=== PATIENT | male | born 1940 | race Hispanic/Latino ===

== ENCOUNTER 2017-03-02 12:31 | Emergency (ER) | payer MEDICARE ==
[2017-03-02] MEDS ORDERED: traMADol HCl 50 MG TAB ONE (13:15)
--- NOTE | 2017-03-02 15:36 | RAD ---
LEFT SHOULDER THREE VIEWS: Date: 03-02-17 FINDINGS: No fracture, dislocation, or AC joint widening was seen. Osteophytes are prominent in the AC joint an d some project inferiorly which could impinge upon the rotator cuff. Glenohumeral joint was unremarka ble. IMPRESSION: Degenerative change with no acute traumatic finding. POS: HOME
== END 2017-03-02 13:19 | disposition home or self-care (01) ==
LOC: BURERS 12:31
DX: M19.012 Primary osteoarthritis, left shoulder (principal)

== ENCOUNTER 2018-09-01 18:28 | Emergency (ER) | payer MEDICARE ==
[2018-09-01] MEDS ORDERED: Lidocaine 2% PF 5 ML VIAL ONE ×2 (18:40→18:42)
[2018-09-01] MEDS ORDERED: Cephalexin 500 MG CAP ONE (18:41)
[2018-09-01] MEDS ORDERED: Adacel (T-DAP) 0.5 ML SYRINGE ONE (18:41)
--- NOTE | 2018-09-01 21:59 | RAD ---
LEFT HAND THREE VIEWS: 09/01/18 Laceration is seen in the distal end of the third digit. While there is no major fracture, there is a very tiny alfonso of a density near the terminal tuft. This may be either a tiny avulsion or a small opaque foreign body. Elsewhere, degenerative changes are seen in the IP joints. IMPRESSION: Laceration with either tiny avulsion or tiny opaque foreign body at the distal end of the third digit . POS: HOME
== END 2018-09-01 19:18 | disposition home or self-care (01) ==
LOC: BURERS 18:28
DX: S61.313A Laceration without foreign body of left middle finger with damage to nail, initial encounter (principal); Z23 Encounter for immunization; W29.3XXA Contact with powered garden and outdoor hand tools and machinery, initial encounter; Y92.009 Unspecified place in unspecified non-institutional (private) residence as the place of occurrence of the external cause
CPT/HCPCS: 11760; 90471; 90715; J2001

== ENCOUNTER 2020-03-03 11:16 | Emergency (ER) | payer MEDICARE | END 2020-03-03 12:35 | disposition home or self-care (01) | LOC: BURERS 11:16 | DX: R53.81 Other malaise (principal); R09.81 Nasal congestion | CPT/HCPCS: 87804; 99283 ==

== ENCOUNTER 2020-03-05 05:31 | Emergency (ER) | payer MEDICARE ==
--- NOTE | 2020-03-05 07:23 | CT ---
CT ABDOMEN AND PELVIS WITHOUT CONTRAST: Date: 03/05/2020 The lung bases show patchy ground-glass infiltrates, particularly in the left lower lobe. In the appr opriate clinical context, COVID should be considered. There are no effusions. Some coronary artery ca lcifications are evident. The liver, spleen, pancreas, gallbladder, adrenal glands, kidneys, and abdominal aorta showed no acut e findings. There is a 4.1 cm water density structure attached to the lower pole of the left kidney t hat is almost certainly an exophytic cyst. Ultrasound would be confirmatory. CT numbers within it are all less than 10. There is transient dilation of the distal abdominal aorta to a maximal AP diameter of 2.8 cm. Calcifications are seen elsewhere in the aorta. There is no distention of bowel to suggest obstruction. A few of the small bowel loops are fluid-fill ed, but not dilated. Some calcifications in the right flank are probably calcified nodes and are of n o concern. There are no inflammatory changes around bowel. CT of the pelvis was remarkable for a large prostate (5 cm diameter). There also were two fat-filled inguinal hernias, larger on the left than on the right. No inflammatory changes are seen in the pelvi s. IMPRESSION: 1. Patchy ground-glass basilar infiltrates, particularly left lower lobe. COVID should be considered , if he does not already have that diagnosis. 2. No distended bowel. Minimal fluid-filled nondilated small bowel in some loops with no excess of f ecal material seen. 3. Prostatic enlargement. 4. Probable left renal cyst. 5. 2.8 cm distal abdominal aortic aneurysm. POS: HOME
== END 2020-03-05 07:24 | disposition home or self-care (01) ==
LOC: BURERS 05:31
DX: K59.00 Constipation, unspecified (principal)
CPT/HCPCS: 74176

== ENCOUNTER 2020-03-07 04:27 | Emergency (ER) | payer MEDICARE ==
[2020-03-07] MEDS ORDERED: predniSONE 20 MG TAB ONE (05:12)
[2020-03-07] MEDS ORDERED: Benzonatate 100 MG CAP ONE (05:12)
[2020-03-07] MEDS ORDERED: Lidocaine Viscous Sol 2% 15 ml UD Cup ONE (05:13)
[2020-03-07] MEDS ORDERED: Mag-Al Plus 1200 MG/1200 MG/120 MG/30 ML UDCUP ONE (05:13)
== END 2020-03-07 05:40 | disposition home or self-care (01) ==
LOC: BURERS 04:27
DX: J02.9 Acute pharyngitis, unspecified (principal)
CPT/HCPCS: 87081; 87430; 99283; J7512

== ENCOUNTER 2020-03-08 16:12 | Emergency (ER) | payer MEDICARE ==
[2020-03-08] MEDS ORDERED: Lidocaine Viscous Sol 2% 15 ml UD Cup ONE (16:38)
[2020-03-08] MEDS ORDERED: Milk Of Magnesia 30 ML UDCUP ONE (16:38)
[2020-03-08 17:33] LABS: #Lymphocytes 1.1 thou/uL (1.20-3.40); #Monocytes 0.4 thou/uL (0.11-0.59); #Neutrophils 7.3 thou/uL (1.40-6.50); %Basophils 0.2 % (0.0-1.0); %Lymphocytes 12.6 % (21.0-51.0); %Monocytes 4.2 % (0.0-10.0); Hemoglobin 15.5 g/dL (14.0-18.0); Mean Corpuscular HGB CONC 33.4 g/dL (32.0-36.0); Mean Corpuscular Hemoglobin 29.5 pg (27.0-31.0); Mean Corpuscular Volume 88.4 fL (78.0-98.0); Mean Platelet Volume 7.9 fL (7.4-10.4); Platelet Count 161 thou/uL (130-400); RBC Distribution Width 12.3 % (11.5-14.5); Red Blood Cell (RBC) Count 5.24 mill/uL (4.70-6.10); White Blood Cell (WBC) Count 8.7 thou/uL (4.8-10.8)
[2020-03-08 17:49] LABS: ALT (SGPT) 19 U/L (8-55); AST (SGOT) 30 U/L (5-34); Albumin 3.8 g/dL (3.4-4.8); Alkaline Phosphatase 55 U/L (40-110); Anion Gap 18 mmol/L (10-20); BUN (Urea Nitrogen) 36 mg/dL (8.4-25.7); Calc. Creatinine Clearance 0 mL/min (70-130); Calcium 9.2 mg/dL (7.8-10.44); Carbon Dioxide 24 mmol/L (23-31); Chloride 93 mmol/L (98-107); Globulin 3.6 g/dL (2.4-3.5); Glucose 315 mg/dL (83-110); Potassium 3.8 mmol/L (3.5-5.1); Protein, Total 7.4 g/dL (5.8-8.1); Sodium 131 mmol/L (136-145)
[2020-03-08 18:07] LABS: CKMB 2.9 ng/mL (0-6.6)
[2020-03-08] MEDS ORDERED: Dexamethasone 10 MG/ML VIAL ONE (18:35)
[2020-03-08] MEDS ORDERED: Sodium Chloride 0.9% 100 ML ONE (18:35)
[2020-03-08] MEDS ORDERED: Insulin Regular 300 UNITS/3 ML VIAL ONE (18:35)
[2020-03-08] MEDS ORDERED: Aspirin Chewable 81 MG TAB ONE (18:35)
[2020-03-08] MEDS ORDERED: cefTRIAXone\\ROCEPHIN 1 GM VIAL ONE (18:35)
[2020-03-08 20:15] LABS: SARS-CoV-2 NAA Rapid Test DETECTED (NotDetected)
--- NOTE | 2020-03-08 20:15 | RAD ---
PORTABLE CHEST: 03/08/20 COMPARISON: Comparison is made with a recent CT of the abdomen that showed patchy ground glass infiltrates in the lower lobes of the lungs. Today's chest x-ray does show several vague patchy infiltrative areas in the lower halves of the ches t and perhaps in the base of the right upper lobe. The lung apices seem less involved. The cardiac si ze is normal for AP projection and body habitus. There are no large effusions or congestive changes. IMPRESSION: Vague patchy infiltrates in the lower halves of the lungs. Coupled with the recent CT scan appearance , COVID is presumed until proven otherwise. POS: HOME
== END 2020-03-08 20:58 | disposition short-term general hospital (02) ==
LOC: BURERS 16:12
DX: U07.1 COVID-19 (principal); I21.4 Non-ST elevation (NSTEMI) myocardial infarction; Z79.52 Long term (current) use of systemic steroids
CPT/HCPCS: 0240U; 36415; 71045; 80053; 82553; 83880; 84484; 85025; 87040; 93005; 96365; 96375; J0696; J1100; J1815; J3490

== ENCOUNTER 2020-12-22 09:57 | Emergency (ER) | payer MEDICARE | END 2020-12-22 11:45 | disposition home or self-care (01) | LOC: BURERS 09:57 | DX: H53.2 Diplopia (principal); H53.149 Visual discomfort, unspecified; I10 Essential (primary) hypertension; E11.9 Type 2 diabetes mellitus without complications; Z91.19 Patient's noncompliance with other medical treatment and regimen | CPT/HCPCS: 36416; 70450 ==